=== PATIENT | male | born 1970 | race Caucasian/White ===

== ENCOUNTER 2024-12-07 20:14 | Emergency (ER) | payer OTHER ==
[2024-12-07] MEDS ORDERED: Sodium Chloride 0.9% 10 ML Syringe FLUSH PRN (20:38)
[2024-12-07 20:54] LABS: BASOPHILS PERCENT AUTO 0.7 % (0.2-1.2); EOSINOPHILS ABSOLUTE AUTO 0.2 x10^3/uL (0.0-0.5); EOSINOPHILS PERCENT AUTO 3.6 % (0.0-4.0); HEMATOCRIT 41.9 % (40.0-52.0); HEMOGLOBIN 15.1 g/dL (14.0-18.0); IMMATURE GRAN ABSOLUTE AUTO 0.01 x10^3/uL (0.00-0.07); LYMPHOCYTES ABSOLUTE AUTO 1.3 x10^3/uL (1.0-4.8); MEAN CORPUSCULAR HEMOGLOBIN 30.2 pg (26.0-32.0); MEAN CORPUSCULAR VOLUME 83.8 fL (78.0-93.0); MONOCYTES ABSOLUTE AUTO 0.8 x10^3/uL (0.0-0.8); MONOCYTES PERCENT AUTO 13.5 % (2.0-11.0); NEUTROPHILS ABSOLUTE AUTO 3.6 x10^3/uL (1.8-7.7); PLATELET COUNT,PLT 176 x10^3/uL (130-400); WHITE BLOOD CELL COUNT,WBC 5.9 x10^3/uL (4.0-10.0)
[2024-12-07 21:11] LABS: A/G RATIO 1.09; ALBUMIN 3.7 g/dL (3.4-5.0); BILIRUBIN TOTAL 0.4 mg/dL (0.2-1.0); CALCIUM 8.7 mg/dL (8.5-10.1); CREATININE 1.3 mg/dL (0.70-1.30); EST CRCL DRUG DOSING (CG) 73.77 mL/min; POTASSIUM,K 3.9 mmol/L (3.5-5.1); PROTEIN TOTAL,TP 7.1 g/dL (6.4-8.2)
[2024-12-07 21:12] LABS: ANION GAP 11.9 mmol/L (5-15)
[2024-12-07 21:14] LABS: LACTIC ACID 1.3 mmol/L (0.4-2.0)
[2024-12-07 21:21] LABS: C-REACTIVE PROTEIN 1.2 mg/dL (<=0.50); MAGNESIUM 1.9 mg/dL (1.8-2.4); TSH ULTRASENSITIVE 1.746 uIU/mL (0.358-3.74)
== END 2024-12-07 21:33 | disposition home or self-care (01) ==
LOC: VM.ED 20:14
DX: R07.89 Other chest pain (principal)
CPT/HCPCS: 71045; 80053; 83605; 83735; 84443; 84484; 85025; 86140; 86308; 87428-QW; 87651-QW; 93005; 93010; 99284; 99285